=== PATIENT | male | born 1985 | race African-American/Black ===

== ENCOUNTER 2016-09-25 20:06 | Emergency (ER) | payer OTHER, MEDICAID ==
[~2016-09-25] VITALS: Ht 185.4 cm; Wt 140.5 kg
[~2016-09-25 20:06] MED LIST: DOCU50CA4; HAL5I; [UNRECOGNIZED DRUG - REMARK]
[2016-09-25 20:21] VITALS: Ht 185.4 cm; Wt 140.5 kg
[2016-09-25 22:59] LABS: ADD UMIC YES; URINE BILIRUBIN (Dip) NEGATIVE (NEGATIVE); URINE BLOOD (Dip) 2+ (NEGATIVE); URINE COLOR LT. YELLOW (YELLOW); URINE GLUCOSE (Dip) >=1000 % (NEGATIVE); URINE KETONES (Dip) 15 (NEGATIVE); URINE LEUKOCYTE ESTERASE (Dip) NEGATIVE (NEGATIVE); URINE NITRITE (Dip) NEGATIVE (NEGATIVE); URINE TOTAL PROTEIN (Dip) 2+ (NEGATIVE); URINE UROBILINOGEN (Dip) 0.2 E.U./dL (0.1-1.0)
[2016-09-25 23:01] LABS: BASOPHILS % 0.5 % (0.0-2.0); EOSINOPHILS % 0.9 % (0.0-7.0); HEMATOCRIT 42.6 % (42.0-52.0); HEMOGLOBIN 14.2 g/dl (14.0-18.0); LYMPHOCYTES % 27.3 % (15.0-51.0); MEAN CORPUSCULAR HEMOGLOBIN 26.7 pg (29.0-33.0); MEAN CORPUSCULAR HGB CONC 33.3 g/dl (32.0-37.0); MEAN CORPUSCULAR VOLUME 80.1 fl (82.0-101.0); MEAN PLATELET VOLUME 9.4 fl (7.4-10.4); MONOCYTE # 0.4 10^3/ul (0.3-0.9); MONOCYTES % 11.8 % (0.0-11.0); NEUTROPHIL # 2.3 10^3/ul (1.6-7.5); NEUTROPHILS % 59.5 % (39.0-77.0); PLATELET COUNT 223 10^3/UL (140-440); RED BLOOD COUNT 5.32 10^6/ul (4.70-6.10); RED CELL DISTRIBUTION WIDTH 13.6 % (11.5-14.5); UNCORRECTED WBC 3.8 10^3/ul (4.8-10.8); WHITE BLOOD COUNT 3.8 10^3/ul (4.8-10.8)
[2016-09-25 23:03] LABS: CONDITION 1; LH ANALYZER COMMENTS 1
[2016-09-25 23:11] LABS: SQUAMOUS EPITHELIAL CELL,UR RARE
[2016-09-25 23:42] LABS: ALBUMIN 4.4 g/dl (3.3-4.9)
[2016-09-25 23:43] LABS: POTASSIUM 4.3 mmol/L (3.5-5.1)
[2016-09-25 23:45] LABS: ALBUMIN/GLOBULIN RATIO 1.1; BILIRUBIN,INDIRECT 0.2 mg/dl (0-1.1); BILIRUBIN,TOTAL 0.2 mg/dl (0.2-1.3); CREATININE 0.84 mg/dl (0.61-1.24); TOTAL PROTEIN 8.4 g/dl (6.1-8.1)
[2016-09-25 23:46] LABS: CALCIUM 9.6 mg/dl (8.4-10.2)
[2016-09-26] MEDS ORDERED: INSULIN REGULAR, HUMAN 100 UNIT/1 ML 3ML VIAL SC ONE (00:30)
[2016-09-26] MEDS ORDERED: METF500T4 PO (00:37)
--- NOTE | 2016-09-26 01:03 | ERD ---
ER Documentation Chief Complaint Date/Time DATE: 09/26/16 TIME: 00:42 Chief Complaint "DEHYDRATION" AND FREQUENT URINATION X 3 WKS; STATES GETS MONTHLY HALDOL IM HPI 31-year-old male complaining of polydipsia and polyuria 3 weeks. Patient stated that he feels dehydrated all the time. He has history of high blood pressure, is taking hydrochlorothiazide daily. Patient stated that he was seen by his PCP 1 month ago, and had blood tests done at that time. But he did not hear the results. His PCP also put him on a new blood pressure medication 1 month ago, he did not like how he feels so he stopped taking it. He does not remember the name of the new medication. Positive family history of diabetes from his mother. Denies fever or chills. Denies headache. Denies chest pain. Denies abdominal pain, nausea, or vomiting. Denies history of diabetes. ROS All systems reviewed and are negative except as per history of present illness. Medications Home Meds Active Scripts Metformin* (Glucophage*) 500 Mg Tab, 500 MG PO BID, #60 TAB Prov:FANY PELAYO BUILDING REPAIR MAINTENANCE SUPERVISOR 09/26/16 Reported Medications Docusate Sodium (Stool Softener) 50 Mg Capsule 09/24/11 Haloperidol* (Haldol* Lactate) 5 Mg/Ml Soln 09/24/11 [Unknown Psych Meds] No Conflict Check 03/15/10 Allergies Allergies: Coded Allergies: No Known Drug Allergy (Verified Allergy, Mild, 09/24/11) PMhx/Soc Medical and Surgical Hx: pt denies Surgical Hx History of Surgery: No Anesthesia Reaction: No Hx Neurological Disorder: No Hx Respiratory Disorders: No Hx Cardiac Disorders: Yes (HTN) Hx Psychiatric Problems: Yes (schizoPHRENIA; TAKING HALDOL) Hx Miscellaneous Medical Probl: No Hx Alcohol Use: Yes (OCCASIONAL ) Hx Substance Use: No Hx Tobacco Use: No Smoking Status: Never smoker FmHx Family History: diabetes Physical Exam Vitals Vital Signs Date Time Temp Pulse Resp B/P Pulse Ox O2 Delivery O2 Flow Rate FiO2 09/25/16 20:21 97.4 104 18 165/94 98 Physical Exam General impression: Well-developed, well-nourished, morbidly obese 31-year-old male, alert, oriented, in no acute distress Head: Normocephalic, atraumatic. Respiration: Normal respiratory effort. Lungs clear to auscultate bilaterally. No wheezes, rales or rhonchi. Cardiovascular: Regular rate and rhythm. No murmurs or extra heart sounds. Abdomen: Abdomen normal to inspection. Nontender. No masses or organomegaly. Bowel sounds normal. Neuro: Mental status normal, speech normal. Skin: Normal turgor. No rash or lesions. Psych: Normal mood and affect. Result Diagram: 09/25/16224909/25/162249 Results 24 hrs Laboratory Tests Test 09/25/16 22:50 09/26/16 01:12 09/26/16 01:38 Alanine Aminotransferase (ALT/SGPT) 110IU/L Albumin 4.4g/dl Albumin/Globulin Ratio 1.10 Alkaline Phosphatase 157IU/L Anion Gap 21 Aspartate Amino Transf (AST/SGOT) 61IU/L Basophils # 0.010^3/ul Basophils % 0.5% Blood Morphology Comment Blood Urea Nitrogen 13mg/dl Calcium Level 9.6mg/dl Carbon Dioxide Level 24mmol/L Chloride Level 86mmol/L Creatinine 0.84mg/dl Direct Bilirubin 0.00mg/dl Eosinophils # 0.010^3/ul Eosinophils % 0.9% Globulin 4.00g/dl Glucose Level 733mg/dl Hematocrit 42.6% Hemoglobin 14.2g/dl Indirect Bilirubin 0.2mg/dl Lymphocytes # 1.010^3/ul Lymphocytes % 27.3% Mean Corpuscular Hemoglobin 26.7pg Mean Corpuscular Hemoglobin Concent 33.3g/dl Mean Corpuscular Volume 80.1fl Mean Platelet Volume 9.4fl Monocytes # 0.410^3/ul Monocytes % 11.8% Neutrophils # 2.310^3/ul Neutrophils % 59.5% Nucleated Red Blood Cells # 0.010^3/ul Nucleated Red Blood Cells % 0.0/100WBC Platelet Count 38532^3/UL Potassium Level 4.3mmol/L Red Blood Count 5.3210^6/ul Red Cell Distribution Width 13.6% Sodium Level 127mmol/L Total Bilirubin 0.2mg/dl Total Protein 8.4g/dl Urine Bilirubin NEGATIVE Urine Clarity CLEAR Urine Color LT. YELLOW Urine Glucose >=1000% Urine Hemoglobin 2+ Urine Ketones 15 Urine Leukocyte Esterase NEGATIVE Urine Microscopic RBC 2-5/HPF Urine Microscopic WBC 0-2/HPF Urine Nitrite NEGATIVE Urine Specific [place] 1.010 Urine Squamous Epithelial Cells RARE Urine Total Protein 2+ Urine Urobilinogen 0.2 E.U./dL Urine pH 6.0 White Blood Count 3.810^3/ul Bedside Glucose 523mg/dL 482mg/dL Current Medications Medications (Trade) Dose Ordered Sig/Rylan Route PRN Reason Start Time Stop Time Status Last Admin Dose Admin Insulin Human Regular (Humulin R) 10 unit ONCE ONCE SC 09/26/16 00:30 09/26/16 00:31 DC 09/26/16 01:43 Procedures/MDM Well-appearing, morbidly obese 31-year-old male presented to ED with polydipsia and polyuria 3 weeks. Large amount of the the glucose is noted in his urine. He is blood glucose level is 733. Patient's symptoms are result from type II diabetes mellitus. No sign of DKA or hyper osmolar hyper glycemic state. Insulin 10 units subcu given to the patient in the ED. After insulin, patient's blood glucose decreased to 482 by Accu-Chek. Patient will be discharged with prescription of metformin 500 mg twice daily. Patient is provided education on type 2 diabetes. He is advised to follow-up with his PCP for further management. Patient appears well, stable for discharge and outpatient management. Medical decision making shared with patient and family. Education provided to patient and family. Patient and family expressed understanding of the plan. Medications on discharge: Metformin. Follow-up: Primary care provider in 2-3 days or return to ED if worse. The case was reviewed and discussed with Dr. Knott, who agrees with the plan of care including labs, treatment, and advanced imaging as appropriate. Departure Diagnosis: Primary Impression: DMII (diabetes mellitus, type 2) Diabetes mellitus complication status: without complication Diabetes mellitus fdc insulin use: without exterminator termite use Qualified Code: E11.9 - Type 2 diabetes mellitus without complication, without long-term current use of insulin Condition: Stable Patient Instructions: What Is Type 2 Diabetes?, Diabetes: Understanding Carbohydrates, Diabetes: Understanding Carbohydrates, Fats, and Protein, DIABETES, General Info Additional Instructions: Call your primary care doctor TOMORROW for an appointment during the next 2-3 days.See the doctor sooner or return here if your condition worsens before your appointment time. FANY PELAYO NP 18, 2017 00:52
[2016-09-26 02:37] VITALS: BP 140/97; PULSE 60; RESP 16; TEMP 98.9
[2016-09-27] MEDS ORDERED: HALO5AMP3 IJ (15:00)
[2016-09-27] MEDS ORDERED: HYD25 PO (15:05)
[2016-09-27] MEDS ORDERED: AMLO5TAB4 PO (15:05)
[2016-09-27] MEDS ORDERED: LOSA50TA6 PO (15:05)
[2016-09-27] MEDS ORDERED: SITA100T8 PO (15:11)
[2016-09-27] MEDS ORDERED: INSU300I SQ (15:17)
== END 2016-09-26 02:38 | disposition home or self-care (01) ==
LOC: FTE 20:06
DX: E11.9 Type 2 diabetes mellitus without complications (principal); I10 Essential (primary) hypertension; Z79.84 Long term (current) use of oral hypoglycemic drugs
CPT/HCPCS: 80053; 81001; 82962; 85025; 96372; 99284; J1815; 81003

== ENCOUNTER 2016-09-27 14:24 | Emergency (ER) | payer OTHER, MEDICAID ==
[~2016-09-27] VITALS: Wt 139.0 kg
[~2016-09-27 14:24] MED LIST changes: +METF500T4 PO
[2016-09-27] MEDS ORDERED: SOD CHLORIDE 0.9% 1,000 ML IV STA (14:56)
[2016-09-27] MEDS ORDERED: INSULIN REGULAR, HUMAN 100 UNIT/1 ML 3ML VIAL SC ONE (15:00)
[2016-09-27] MEDS ORDERED: HALO5AMP3 IJ (15:00)
[2016-09-27] MEDS ORDERED: AMLO5TAB4 PO (15:05)
[2016-09-27] MEDS ORDERED: HYD25 PO (15:05)
[2016-09-27] MEDS ORDERED: LOSA50TA6 PO (15:05)
[2016-09-27] MEDS ORDERED: SITA100T8 PO (15:11)
[2016-09-27] MEDS ORDERED: INSU300I SQ (15:17)
[2016-09-27 15:18] LABS: BASOPHILS % 0.3 % (0.0-2.0); EOSINOPHILS # 0.1 10^3/ul (0.0-0.5); EOSINOPHILS % 1.3 % (0.0-7.0); HEMATOCRIT 43.4 % (42.0-52.0); HEMOGLOBIN 14.4 g/dl (14.0-18.0); LYMPHOCYTES % 31.2 % (15.0-51.0); MEAN CORPUSCULAR HEMOGLOBIN 26.5 pg (29.0-33.0); MEAN CORPUSCULAR HGB CONC 33.1 g/dl (32.0-37.0); MEAN CORPUSCULAR VOLUME 80.1 fl (82.0-101.0); MEAN PLATELET VOLUME 9.6 fl (7.4-10.4); MONOCYTE # 0.5 10^3/ul (0.3-0.9); MONOCYTES % 8.4 % (0.0-11.0); NEUTROPHIL # 3.7 10^3/ul (1.6-7.5); NEUTROPHILS % 58.8 % (39.0-77.0); PLATELET COUNT 235 10^3/UL (140-440); RED BLOOD COUNT 5.43 10^6/ul (4.70-6.10); RED CELL DISTRIBUTION WIDTH 13.4 % (11.5-14.5); UNCORRECTED WBC 6.3 10^3/ul (4.8-10.8); WHITE BLOOD COUNT 6.3 10^3/ul (4.8-10.8)
--- NOTE | 2016-09-27 15:26 | RADRPT ---
PROCEDURE: XR Chest. CLINICAL INDICATION: chest pain TECHNIQUE: Single frontal view of the chest was obtained COMPARISON: None FINDINGS: The heart and mediastinum are within normal limits. The lungs are clear. There is no pleural effusion or pneumothorax. RPTAT: AA IMPRESSION: No acute disease. .Luis Manuel MD, Date Time Electronically viewed and signed by .Luis Manuel MD, on 09/27/2016 15:25 .S/
[2016-09-27 15:27] LABS: CONDITION 1; LH ANALYZER COMMENTS 1; SUSPECT 1
[2016-09-27 15:30] LABS: ALBUMIN 4.4 g/dl (3.3-4.9); CHLORIDE 90 mmol/L (97-110); POTASSIUM 3.8 mmol/L (3.5-5.1); SODIUM 130 mmol/L (135-144)
[2016-09-27 15:32] LABS: ANION GAP 23 (8-16); BILIRUBIN,INDIRECT 0.5 mg/dl (0-1.1); BILIRUBIN,TOTAL 0.5 mg/dl (0.2-1.3); CARBON DIOXIDE 21 mmol/L (21-31); CREATININE 1.13 mg/dl (0.61-1.24)
[2016-09-27 15:33] LABS: ALANINE AMINOTRANSFERASE 104 IU/L (13-69); ALKALINE PHOSPHATASE 114 IU/L (42-121); ASPARTATE AMINO TRANSFERASE 63 IU/L (15-46); BLOOD UREA NITROGEN 15 mg/dl (7-20); CALCIUM 9.7 mg/dl (8.4-10.2); TOTAL PROTEIN 8.8 g/dl (6.1-8.1)
[2016-09-27 15:35] LABS: GLUCOSE 428 mg/dl (70-220)
[2016-09-27 15:45] LABS: TROPONIN-I < 0.012 ng/ml (0.00-0.12)
[2016-09-27 16:30] LABS: ADD UMIC YES; URINE BILIRUBIN (Dip) NEGATIVE (NEGATIVE); URINE BLOOD (Dip) 1+ (NEGATIVE); URINE COLOR LT. YELLOW (YELLOW); URINE GLUCOSE (Dip) >=1000 % (NEGATIVE); URINE KETONES (Dip) 3+ (NEGATIVE); URINE LEUKOCYTE ESTERASE (Dip) NEGATIVE (NEGATIVE); URINE NITRITE (Dip) NEGATIVE (NEGATIVE); URINE TOTAL PROTEIN (Dip) TRACE (NEGATIVE); URINE UROBILINOGEN (Dip) 0.2 E.U./dL (0.1-1.0)
--- NOTE | 2016-09-27 16:43 | ERD ---
ER Documentation Chief Complaint Date/Time DATE: 09/27/16 TIME: 16:42 Chief Complaint HERE FOR IV FLUIDS FOR HIGH SUGARS NEW DX OF DM. NAUSEA AND WEAKNESS HPI 31-year-old man with history of psychiatric illness and recent diabetes mellitus was found to be hyperglycemic at the office today and after his physician administered 12 units of insulin subcutaneously she referred him here to rule out DKA versus hyperosmolar state. He has had no dizziness or loss of consciousness, no fevers or chills, no chest pain or shortness of breath. Patient denies dysuria. He was given multiple samples of insulin syringe to inject subcutaneously, his PMD also gave him instructions on how to use the insulin and recommended he use 1 dose tonight. He has had no vomiting or diarrhea, no blood per rectum or melena. Patient denies suicidal homicidal ideation. ROS All systems reviewed and are negative except as per history of present illness. Medications Home Meds Active Scripts Metformin* (Glucophage*) 500 Mg Tab, 500 MG PO BID, #60 TAB Prov:FANY PELAYO TECHNICAL PRODUCT MANAGER 09/26/16 Reported Medications Insulin Glargine,Hum.rec.anlog (Zaid Rico) 300 Unit/1 Ml Insuln.pen, 40 UNIT SQ QHS PT HASNT STARTED YET 09-27-16 09/27/16 Sitagliptin* (Januvia*) 100 Mg Tablet, 100 MG PO DAILY, #30 TAB PT HASNT STARTED YET 09-27-16 09/27/16 Amlodipine Besylate* (Norvasc*) 5 Mg Tablet, 5 MG PO DAILY, TAB 09/27/16 Losartan Potassium* (Losartan Potassium*) 50 Mg Tablet, 50 MG PO DAILY, TAB 09/27/16 Hydrochlorothiazide* (Hydrochlorothiazide*) 25 Mg Tab, 25 MG PO DAILY, #30 TAB 09/27/16 Haloperidol Lactate (Haldol) 5 Mg/1 Ml Ampul, 62.5 MG IJ ONCE A MONTH 09/27/16 Discontinued Reported Medications Docusate Sodium (Stool Softener) 50 Mg Capsule 09/24/11 Haloperidol* (Haldol* Lactate) 5 Mg/Ml Soln 09/24/11 [Unknown Psych Meds] No Conflict Check 03/15/10 Allergies Allergies: Coded Allergies: No Known Drug Allergy (Verified Allergy, Mild, 09/27/16) PMhx/Soc Obesity, psychiatric illness, diabetes mellitus History of Surgery: No Anesthesia Reaction: No Hx Neurological Disorder: No Hx Respiratory Disorders: No Hx Cardiac Disorders: Yes (HTN) Hx Psychiatric Problems: Yes (schizoPHRENIA; TAKING HALDOL) Hx Miscellaneous Medical Probl: No (DM) Hx Alcohol Use: Yes (OCCASIONAL ) Hx Substance Use: No Hx Tobacco Use: No Smoking Status: Never smoker FmHx Family History: diabetes Physical Exam Vitals Vital Signs Date Time Temp Pulse Resp B/P Pulse Ox O2 Delivery O2 Flow Rate FiO2 09/27/16 17:00 98.7 87 20 126/84 100 Room Air 09/27/16 16:18 98.8 87 20 123/87 100 Room Air 09/27/16 14:29 98.8 116 20 132/82 98 Physical Exam GENERAL: Well-developed, well-nourished, well-hydrated, in no apparent distress , looks nontoxic in appearance HEENT: Moist mucous membranes, pink conjunctiva, no cervical spine tenderness or step-off deformities, no goiter, no jaundice or icterus, extraocular movements intact without pain. No submandibular induration, and no pharyngeal erythema NEURO: Alert and oriented 3, cranial nerves II through XII intact bilaterally, pupils equal round reactive to light, no focal deficits or facial asymmetry, sensation intact distally Strength 5/5 in upper and lower extremities bilaterally CARDIAC: Regular rate and rhythm, no murmurs rubs or gallops LUNGS: Clear bilaterally no wheezing crackles or stridor ABDOMEN: Soft nontender, no guarding, no rigidity, no rebound, no psoas sign no obturator sign. Normoactive bowel sounds SKIN: Warm and dry to touch, no abrasions, contusions, or hematomas, no lacerations, no ecchymosis, no target lesions, and without ulcers EXTREMITIES: No clubbing cyanosis or edema, calves are bilaterally symmetrical, no Homans sign, no popliteal cord sign. Distal pulses equal and bilateral PSYCH: Normal affect without agitation or irritability Result Diagram: 09/27/16 1505 09/27/16 1505 Results 24 hrs Laboratory Tests Test 09/27/16 14:34 09/27/16 14:56 09/27/16 15:05 09/27/16 15:13 Bedside Glucose 394mg/dL 417mg/dL Nabil Test N/A Arterial Blood Date Drawn 09/27/2016 4:43:41 PM Arterial Blood Gas Puncture Site VENOUS LINE Blood Gas Actual Respiration Rate 20 Blood Gas Modality ROOM AIR Blood Gas Notified Time 09/27/2016 4:57:36 PM Blood Gas Notified Whom MARCELINO RT Blood Gas Specimen Source Blood venous Blood Gas Temperature 37.0C Carboxyhemoglobin 0.5% FiO2 21.0% Venous Blood Base Excess -5.4mmol/L Venous Blood HCO3 19.6mmol/L Venous Blood Methemoglobin 0.2% Venous Blood Oxygen Saturation 72.8mmHG Venous Blood Oxyhemoglobin 72.3% Venous Blood Total Hemoglobin 14.4g/dl Venous Blood pCO2 (Temp Corrected) 36.7mmHG Venous Blood pH 7.345 Venous Blood pO2 (Temp Corrected) 40.7mmHG Alanine Aminotransferase (ALT/SGPT) 104IU/L Albumin 4.4g/dl Albumin/Globulin Ratio 1.00 Alkaline Phosphatase 114IU/L Anion Gap 23 Aspartate Amino Transf (AST/SGOT) 63IU/L Basophils # 0.010^3/ul Basophils % 0.3% Blood Morphology Comment Blood Urea Nitrogen 15mg/dl Calcium Level 9.7mg/dl Carbon Dioxide Level 21mmol/L Chloride Level 90mmol/L Creatinine 1.13mg/dl Differential Comment AUTO w/SCAN Direct Bilirubin 0.00mg/dl Eosinophils # 0.110^3/ul Eosinophils % 1.3% Globulin 4.40g/dl Glucose Level 428mg/dl Hematocrit 43.4% Hemoglobin 14.4g/dl Indirect Bilirubin 0.5mg/dl Lipase 164U/L Lymphocytes # 2.010^3/ul Lymphocytes % 31.2% Mean Corpuscular Hemoglobin 26.5pg Mean Corpuscular Hemoglobin Concent 33.1g/dl Mean Corpuscular Volume 80.1fl Mean Platelet Volume 9.6fl Monocytes # 0.510^3/ul Monocytes % 8.4% Neutrophils # 3.710^3/ul Neutrophils % 58.8% Nucleated Red Blood Cells # 0.010^3/ul Nucleated Red Blood Cells % 0.0/100WBC Platelet Count 65053^3/UL Potassium Level 3.8mmol/L Red Blood Count 5.4310^6/ul Red Cell Distribution Width 13.4% Sodium Level 130mmol/L Total Bilirubin 0.5mg/dl Total Protein 8.8g/dl Troponin I < 0.012ng/ml White Blood Count 6.310^3/ul Test 09/27/16 16:20 09/27/16 16:36 Urine Bilirubin NEGATIVE Urine Clarity SLIGHTLY CLOUDY Urine Coarse Granular Casts MODERATE Urine Color LT. YELLOW Urine Glucose >=1000% Urine Hemoglobin 1+ Urine Ketones 3+ Urine Leukocyte Esterase NEGATIVE Urine Microscopic RBC 2-5/HPF Urine Microscopic WBC 0-2/HPF Urine Nitrite NEGATIVE Urine Specific [place] 1.010 Urine Squamous Epithelial Cells FEW Urine Total Protein TRACE Urine Urobilinogen 0.2 E.U./dL Urine pH 5.5 Bedside Glucose 338mg/dL Current Medications Medications (Trade) Dose Ordered Sig/Rylan Route PRN Reason Start Time Stop Time Status Last Admin Dose Admin Sodium Chloride (NS) 1,000 ml @ 1,000 mls/hr Q1H STAT IV 09/27/16 14:56 09/27/16 15:55 DC 09/27/16 15:20 Insulin Human Regular (Humulin R) 12 unit ONCE ONCE SC 09/27/16 15:00 09/27/16 15:01 DC Procedures/MDM IV line was established patient was placed on court recording monitor rhythm strip revealed a sinus rhythm at about 90 bpm with upright P and T waves. EKG performed, read by me: 89 bpm, normal sinus rhythm, normal axis, diffuse T- wave inversions in all leads, no concerning ST elevations or depressions noted. Narrow QRS complex, with good R-wave progression in precordial leads. Unremarkable CBC was unremarkable, electrolytes revealed hyperglycemia initially of 428, liver function tests were normal, troponin was negative. Urinalysis was negative for infection. VBG was performed and interpreted by me revealing a pH of 7.35, PCO2 37, PO2 41. Normal. Blood sugar fell appropriately after IV fluids and I recommended he uses subcutaneous insulin this evening as recommended by his PMD I obtained a consultation with the patient's primary care physician, who referred him here. We went over and discussed the patient's presentation, symptomatology, and labs. He does have a prescription for his subcutaneous insulin and was given information and instructions on how to use it. His next dose will be later this evening. He can be managed as an outpatient and we found no indication for admission. Differential diagnoses considered, included but not limited to acute coronary syndrome, pulmonary embolism, aortic dissection, abdominal aortic aneurysm, sepsis, stroke, meningitis, encephalitis, pneumonia, appendicitis, cholecystitis , bowel obstruction, pyelonephritis, nephrolithiasis, cystitis, as well as metabolic, hematologic, and electrolyte abnormalities. As well as abscess, cellulitis, fractures, and dislocations. Patient feels much better at this time, and vital signs are normal, symptoms have improved. I did give strict instructions to return to the ED if symptoms continue or worsen, patient will otherwise follow-up with primary care physician. Patient understood instructions and agreed to plan. Departure Diagnosis: Primary Impression: Hyperglycemia Condition: Good Patient Instructions: Hyperglycemia (High Blood Sugar) Referrals: MALIKA BERNSTEIN DO (PCP) YOLANDE PARSON MD Sep 27, 2016 16:43
[2016-09-27 16:56] LABS: SQUAMOUS EPITHELIAL CELL,UR FEW
[2016-09-27 16:57] LABS: MODE ROOM AIR; MetHgb Venous 0.2 %; Sample Type Blood venous; Venous COHb 0.5 %; Venous Fraction OxyHgb 72.3 %; Venous Total Hemglobin 14.4 g/dl
[2016-09-27 17:00] VITALS: BP 126/84; PULSE 87; RESP 20; TEMP 98.7
== END 2016-09-27 17:26 | disposition home or self-care (01) ==
LOC: E/R 14:24
DX: E11.65 Type 2 diabetes mellitus with hyperglycemia (principal); I10 Essential (primary) hypertension; E66.9 Obesity, unspecified; Z79.4 Long term (current) use of insulin; Z79.84 Long term (current) use of oral hypoglycemic drugs
CPT/HCPCS: 36415; 71010; 80053; 81001; 82803; 82962; 83690; 84484; 85025; 93005; J1815; J7030; Z7502; 81003

== ENCOUNTER 2016-10-19 15:06 | Emergency (ER) | payer MEDICAID, OTHER ==
[~2016-10-19] VITALS: Wt 120.0 kg
[~2016-10-19 15:06] MED LIST changes: +AMLO5TAB4 PO; -DOCU50CA4; -HAL5I; +HALO5AMP3 IJ; +HYD25 PO; +INSU300I SQ; +LOSA50TA6 PO; +SITA100T8 PO; -[UNRECOGNIZED DRUG - REMARK]
[2016-10-19] MEDS ORDERED: PSEU120T51 PO (15:36)
[2016-10-19] MEDS ORDERED: CARB15DR48 LEFT EAR (15:37)
--- NOTE | 2016-10-19 15:42 | ERD ---
ER Documentation Chief Complaint Date/Time DATE: 10/19/16 TIME: 15:37 Chief Complaint EAR PAIN X 1 WEEK HPI She has 31-year-old male who presents to the emergency Department with left ear pain 1 week. Patient states that he recently had a URI. Patient states that he had a cough and rhinorrhea. Patient states 2 days ago and started to feel "increased pressure" to his left ear. Patient states as if it feels that there is blockage. Patient states that he feels difficulty popping his ear. Patient reports using Q-tips daily. He denies any fever, chills, nausea, vomiting, cough , abdominal pain, loss of consciousness. ROS All systems reviewed and are negative except as per history of present illness. Medications Home Meds Active Scripts Carbamide Peroxide* (Debrox*) 6.5% - 15 Ml Drops, 5 DROP LEFT EAR BID, #1 BOTTLE Prov:JOSEPHINE OLMSTEAD PA-C 10/19/16 Pseudoephedrine Hcl (Sudafed 12 Hour) 120 Mg Tablet.sa, 120 MG PO BID, #14 Prov:JOSEPHINE OLMSTEAD PA-C 10/19/16 Metformin* (Glucophage*) 500 Mg Tab, 500 MG PO BID, #60 TAB Prov:FANY PELAYO. CHUTE LOADER 09/26/16 Reported Medications Insulin Glargine,Hum.rec.anlog (Zaid Rico) 300 Unit/1 Ml Insuln.pen, 40 UNIT SQ QHS PT HASNT STARTED YET 09-27-16 09/27/16 Sitagliptin* (Januvia*) 100 Mg Tablet, 100 MG PO DAILY, #30 TAB PT HASNT STARTED YET 09-27-16 09/27/16 Amlodipine Besylate* (Norvasc*) 5 Mg Tablet, 5 MG PO DAILY, TAB 09/27/16 Losartan Potassium* (Losartan Potassium*) 50 Mg Tablet, 50 MG PO DAILY, TAB 09/27/16 Hydrochlorothiazide* (Hydrochlorothiazide*) 25 Mg Tab, 25 MG PO DAILY, #30 TAB 09/27/16 Haloperidol Lactate (Haldol) 5 Mg/1 Ml Ampul, 62.5 MG IJ ONCE A MONTH 09/27/16 Allergies Allergies: Coded Allergies: No Known Drug Allergy (Verified Allergy, Mild, 09/27/16) PMhx/Soc History of Surgery: No Anesthesia Reaction: No Hx Neurological Disorder: No Hx Respiratory Disorders: No Hx Cardiac Disorders: Yes (HTN) Hx Psychiatric Problems: Yes (schizoPHRENIA; TAKING HALDOL) Hx Miscellaneous Medical Probl: No (DM) Hx Alcohol Use: Yes (OCCASIONAL ) Hx Substance Use: No Hx Tobacco Use: No Physical Exam Vitals Vital Signs Date Time Temp Pulse Resp B/P Pulse Ox O2 Delivery O2 Flow Rate FiO2 10/19/16 15:09 99.0 89 18 162/81 99 Physical Exam GENERAL: Well-developed, well-nourished male. Appears in no acute distress. . HEAD: Normocephalic, atraumatic. No deformities or ecchymosis. EYE: Pupils equal, round, and reactive to light. EOMs intact. No conjunctival erythema. No scleral icterus. No eye discharge. ENT: External ear without any masses or tenderness. Left-side auditory canal noted with minimal cerumen. Canal is not fully impacted. Left TM is visualized, nonerythematous nonbulging. Right auditory canal is clear, right TM is visualized, nonerythematous nonbulging. Nasal mucosa pink with no discharge. Oropharynx is pink without any tonsillar erythema or exudates. No uvula deviation. No kissing tonsils. NECK: Supple. No lymphadenopathy or thyromegaly. Arrange of motion of the neck. LUNG: Clear to auscultation bilaterally. No rhonchi, wheezing, rales or coarse breath sounds. HEART: Regular rate and rhythm. No murmurs, rubs or gallops. ABDOMEN: Soft, nontender, and nondistended. Positive bowel sounds in all four quadrants. No rebound tenderness, no guarding. (-) McBurney's point tenderness. No CVA tenderness. BACK: No midline tenderness. EXTREMITES: Equal pulses bilaterally. No peripheral clubbing, cyanosis or edema. No unilateral leg swelling. NEUROLOGIC: Alert and oriented to person, place and time. Moving all four extremities. 5/5 strength in all extremities. Normal speech. Steady gait. SKIN: Normal color. Warm and dry. No rashes or lesions. Procedures/MDM MEDICAL DECISION MAKING: This is a 33-year-old male who presents with left ear pain after recent URI. Vital signs were reviewed. Patient was afebrile. Patient was not hypoxic. Ear exam revealed minimal cerumen, nonbulging nonerythematous tympanic membrane. Given these findings, the patients presentation is most consistent with eustachian tube dysfunction.. I have a much lower clinical suspicion for otitis externa, acute otitis media, tympanic membrane perforation, mastoiditis, otic barotrauma, TMJ dysfunction, pharyngitis, pneumonia. At this time, I do not feel that ear irrigation is appropriate given that patient has minimal cerumen impaction. PRESCRIPTIONS: Debrox ear drops, Sudafed DISCHARGE: At this time, patient is stable for discharge and outpatient management. I have instructed the patient to follow-up with his/her primary care physician in 1-2 days. I have discussed with the patient the possibility of needing to see a specialist for further workup and diagnostic studies if the pain persists. I have instructed the patient to promptly return to the ER at any time for any new or worsening symptoms including increased pain, fever, swelling, discharge or hearing loss. The patient and/or family expressed understanding of and agreement with this plan. All questions were answered. Home care instructions were provided. Departure Diagnosis: Primary Impression: Eustachian tube dysfunction Laterality: left Qualified Code: H69.82 - Eustachian tube dysfunction, left Condition: Stable Patient Instructions: Common Middle Ear Problems Additional Instructions: Avoid Q tips. Call your primary care doctor TOMORROW for an appointment during the next 1-2 days.See the doctor sooner or return here if your condition worsens before your appointment time. JOSEPHINE OLMSTEAD PA-C Oct 19, 2016 15:42
== END 2016-10-19 15:40 | disposition home or self-care (01) ==
LOC: E/R 15:06
DX: H69.82 Other specified disorders of Eustachian tube, left ear (principal); I10 Essential (primary) hypertension; E11.9 Type 2 diabetes mellitus without complications; Z79.4 Long term (current) use of insulin; Z79.84 Long term (current) use of oral hypoglycemic drugs
CPT/HCPCS: 99283

== ENCOUNTER 2018-09-11 16:39 | Emergency (ER) | payer OTHER, BC ==
[~2018-09-11] VITALS: Ht 182.9 cm; Wt 142.7 kg
[~2018-09-11 16:39] MED LIST changes: +CARB15DR50 LEFT EAR; -HYD25 PO; +HYDR25TA6 PO; -LOSA50TA6 PO; +LOSA50TA7 PO; +METF-849 PO; -METF500T4 PO; +PSEU120T12 PO; +SITA100T11 PO; -SITA100T8 PO
[2018-09-11 16:52] VITALS: Ht 182.9 cm; Wt 142.7 kg
[2018-09-11] MEDS ORDERED: SOD CHLORIDE 0.9% 1,000 ML IV ONE (19:30)
[2018-09-11] MEDS ORDERED: HYDR25TA6 PO (19:59)
[2018-09-11] MEDS ORDERED: LOSA50TA7 PO (20:00)
[2018-09-11] MEDS ORDERED: BENZ1TAB7 PO (20:00)
[2018-09-11] MEDS ORDERED: HALO100A3 IM (20:03)
[2018-09-11] MEDS ORDERED: CANA300T PO (20:16)
[2018-09-11] MEDS ORDERED: LIRA0.6P2 SQ (20:16)
--- NOTE | 2018-09-11 20:19 | ERD ---
ER Documentation Chief Complaint Chief Complaint Sent by PCP for >500 BG, polyuria, body aches X 1 day HPI 33-year-old male with a known history of diabetes presents the emergency department for evaluation of high blood sugar. Patient states over the last few days, over the holidays, his blood sugars have been high. He has had polyuria and polydipsia with no fevers, chills or discomfort. ROS All systems reviewed and are negative except as per history of present illness. Medications Home Meds Active Scripts Liraglutide (Victoza 3-Kirby) 0.6 Mg/0.1 Ml Pen.injctr, 1.2 MG SQ DAILY, #20 SYR Prov:CATE ONRRIS 09/11/18 Canagliflozin (Invokana) 300 Mg Tablet, 300 MG PO DAILY, #20 TAB Prov:CATE NORRIS 09/11/18 Reported Medications Haloperidol Decanoate (Haldol Decanoate 100) 100 Mg/1 Ml Ampul, 62.5 MG IM ONCE A MONTH 09/11/18 Benztropine Mesylate* (Benztropine Mesylate*) 1 Mg Tablet, 1 MG PO DAILY PRN for NEEDED, TAB 09/11/18 Losartan Potassium* (Losartan Potassium*) 50 Mg Tablet, 50 MG PO DAILY, TAB 09/11/18 Hydrochlorothiazide* (Hydrochlorothiazide*) 25 Mg Tab, 25 MG PO DAILY, #30 TAB 09/11/18 Discontinued Reported Medications Insulin Glargine,Hum.rec.anlog (Zaid Rico) 300 Unit/1 Ml Insuln.pen, 40 UNIT SQ QHS PT HASNT STARTED YET 09-27-16 09/27/16 Sitagliptin* (Januvia*) 100 Mg Tablet, 100 MG PO DAILY, #30 TAB PT HASNT STARTED YET 09-27-09/27/16 Amlodipine Besylate* (Norvasc*) 5 Mg Tablet, 5 MG PO DAILY, TAB 09/27/16 Losartan Potassium* (Losartan Potassium*) 50 Mg Tablet, 50 MG PO DAILY, TAB 09/27/16 Hydrochlorothiazide* (Hydrochlorothiazide*) 25 Mg Tab, 25 MG PO DAILY, #30 TAB 09/27/16 Haloperidol Lactate (Haldol) 5 Mg/1 Ml Ampul, 62.5 MG IJ ONCE A MONTH 09/27/16 Discontinued Scripts Carbamide Peroxide* (Debrox*) 6.5% - 15 Ml Drops, 5 DROP LEFT EAR BID, #1 BOTTLE Prov:AYSHAJOSEPHINE WILSON 10/19/16 Pseudoephedrine Hcl (Sudafed 12 Hour) 120 Mg Tablet.sa, 120 MG PO BID, #14 Prov:PRETTY OLMSTEADJENNI WILSON 10/19/16 Metformin* (Glucophage*) 500 Mg Tab, 500 MG PO BID, #60 TAB Prov:FANY PELAYO BIOINFORMATICS SPECIALIST 09/26/16 Allergies Allergies: Coded Allergies: No Known Drug Allergy (Verified Allergy, Mild, 09/11/18) PMhx/Soc History of Surgery: No Anesthesia Reaction: No Hx Neurological Disorder: No Hx Respiratory Disorders: No Hx Cardiac Disorders: Yes (HTN) Hx Psychiatric Problems: Yes (schizoPHRENIA; TAKING HALDOL) Hx Miscellaneous Medical Probl: No (DM) Hx Alcohol Use: Yes (OCCASIONAL ) Hx Substance Use: No Hx Tobacco Use: No Smoking Status: Never smoker FmHx History of diabetes in the family Physical Exam Vitals Vital Signs Date Temp Pulse Resp B/P (MAP) Pulse Ox O2 O2 Flow FiO2 Time Delivery Rate 09/11/18 98.2 106 18 143/88 96 16:52 (106) Physical Exam GENERAL: The patient is well developed and appropriate for usual state of health in no apparent distress HEENT: Pupils equal, round, and reactive to light. EOMI. There is no scleral icterus. NECK: C-spine is soft and supple, there is no meningismus. There is no cervical lymphadenopathy. LUNGS: Clear to auscultation bilaterally. There are no rales, wheezes or rhonchi. HEART: Regular rate and rhythm, no murmurs, clicks, rubs or gallops. ABDOMEN: Soft, non-tender, non-distended. There are bowel sounds in all four quadrants. No rebound or guarding. EXTREMITIES: There is no peripheral cyanosis or edema. No focal swelling or erythema. NEURO: The patient moves all four extremities with 5/5 strength. Cranial nerves II - XII are intact. Normal gait. Alert and oriented SKIN: There is no apparent rash or petechiae. HEME/LYMPHATIC: There is no evidence of excessive bruising or lymphedema. PSYCHIATRIC: The patient does not appear anxious or depressed. Result Diagram: 09/11/18192409/11/181924 Results 24 hrs Laboratory Tests Test 09/11/18 16:56 09/11/18 19:25 09/11/18 19:30 Bedside Glucose 518 mg/dL White Blood Count 7.8 10^3/ul Red Blood Count 5.10 10^6/ul Hemoglobin 13.5 g/dl Hematocrit 42.2 % Mean Corpuscular Volume 82.7 fl Mean Corpuscular Hemoglobin 26.5 pg Mean Corpuscular 32.0 g/dl Hemoglobin Concent Red Cell Distribution Width 12.8 % Platelet Count 344 10^3/UL Mean Platelet Volume 11.0 fl Immature Granulocytes % 0.400 % Neutrophils % 51.0 % Lymphocytes % 38.8 % Monocytes % 8.0 % Eosinophils % 1.4 % Basophils % 0.4 % Nucleated Red Blood Cells % 0.0 /100WBC Immature Granulocytes # 0.030 10^3/ul Neutrophils # 4.0 10^3/ul Lymphocytes # 3.0 10^3/ul Monocytes # 0.6 10^3/ul Eosinophils # 0.1 10^3/ul Basophils # 0.0 10^3/ul Nucleated Red Blood Cells # 0.0 10^3/ul Sodium Level 133 mmol/L Potassium Level 4.3 mmol/L Chloride Level 95 mmol/L Carbon Dioxide Level 28 mmol/L Anion Gap 10 Blood Urea Nitrogen 17 mg/dl Creatinine 0.92 mg/dl Est Glomerular Filtrat > 60 mL/min Rate mL/min Glucose Level 427 mg/dl Calcium Level 9.8 mg/dl Phosphorus Level 3.7 mg/dl Magnesium Level 2.0 mg/dl Urine Color STRAW Urine Clarity CLEAR Urine pH 5.0 Urine Specific [place] 1.038 Urine Ketones TRACE mg/dL Urine Nitrite NEGATIVE mg/dL Urine Bilirubin NEGATIVE mg/dL Urine Urobilinogen NEGATIVE mg/dL Urine Leukocyte Esterase NEGATIVE Linda/ul Urine Microscopic RBC 1 /HPF Urine Microscopic WBC 0 /HPF Urine Hemoglobin NEGATIVE mg/dL Urine Glucose 3+ mg/dL Urine Total Protein 2+ mg/dl Current Medications Medications Dose Sig/Rylan Start Time Status Last (Trade) Ordered Route PRN Stop Time Admin Dose Reason Admin Sodium 1,000 ml @ ONCE ONCE 09/11/18 09/11/18 Chloride 1,000 mls/hr IV 19:30 09/11/18 19:39 20:29 Procedures/MDM Patient was taken to a room, seen and evaluated. Comfort measures were initiated. Diagnostic tests were ordered and reviewed. REEVALUATION: 2014: Diagnostic tests were appreciated. Patient was hydrated. Patient remained clinically well-appearing. After discussing the patient's test results with him, he seemed appropriate for outpatient care. MEDICAL DECISION MAKIN-year-old male presents the emergency department with essentially a asymptomatic hyperglycemia. At this time, patient appears to be c linically asymptomatic with no evidence of diabetic ketoacidosis. Patient appears to be clinically well and appropriate for outpatient supportive care. I will be refilling his medications which had previously controlled his diabetes for him. Departure Diagnosis: Primary Impression: Hyperglycemia Condition: Stable Patient Instructions: Hyperglycemia (High Blood Sugar) Additional Instructions: See your doctor for follow-up as discussed. Take a copy of your test results, if appropriate, to this follow-up visit. See your doctor or return here if your symptoms do not improve as expected. At any time, please return to the emergency department for any change or wors ening in her symptoms. CATE NORRIS Sep 11, 2018 20:19
[2018-09-11 20:31] VITALS: BP 138/82; PULSE 82; RESP 20
== END 2018-09-11 20:32 | disposition home or self-care (01) ==
LOC: E/R 16:39
DX: E11.65 Type 2 diabetes mellitus with hyperglycemia (principal); I10 Essential (primary) hypertension
CPT/HCPCS: 36415; 80048; 81001; 82962; 83735; 84100; 85025; 99284; J7030

== ENCOUNTER 2019-03-28 18:39 | Emergency (ER) | payer OTHER, BC ==
[~2019-03-28] VITALS: Ht 182.9 cm; Wt 142.0 kg
[~2019-03-28 18:39] MED LIST changes: -AMLO5TAB4 PO; +BENZ1TAB7 PO; +CANA300T PO; -CARB15DR50 LEFT EAR; +HALO100A3 IM; -HALO5AMP3 IJ; -INSU300I SQ; +LIRA0.6P2 SQ; +LOSA50TA14 PO; -LOSA50TA7 PO; -METF-849 PO; -PSEU120T12 PO; -SITA100T11 PO
[2019-03-28 18:55] VITALS: Ht 182.9 cm; Wt 142.0 kg
[2019-03-28] MEDS ORDERED: SOD CHLORIDE 0.9% 2,000 ML IV STA (19:20)
[2019-03-28] MEDS ORDERED: INSULIN LISPRO 100 UNIT/ML VIAL SC ONE (20:30)
[2019-03-28] MEDS ORDERED: SOD CHLORIDE 0.9% 1,000 ML IV ONE (22:13)
--- NOTE | 2019-03-28 22:24 | ERD ---
ER Documentation Chief Complaint Chief Complaint Pt reports glucose was 339 fasting this morning HPI 33-year-old male presents with a history of diabetes. He takes Glucophage and Lantus. His doctors currently titrating up his Lantus. He is concerned because he had a blood glucose of 339 at home. He is wishing to have it lowered so he could accurately titrate his Lantus. He denies any vomiting, headache, fevers, recent illnesses. 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 ROS All systems reviewed and are negative except as per history of present illness. Medications Home Meds Active Scripts Liraglutide (Victoza 3-Kirby) 0.6 Mg/0.1 Ml Pen.injctr, 1.2 MG SQ DAILY, #20 SYR Prov:CATE NORRIS 09/11/18 Canagliflozin (Invokana) 300 Mg Tablet, 300 MG PO DAILY, #20 TAB Prov:CATE NORRIS 09/11/18 Reported Medications Haloperidol Decanoate (Haldol Decanoate 100) 100 Mg/1 Ml Ampul, 62.5 MG IM ONCE A MONTH 09/11/18 Benztropine Mesylate* (Benztropine Mesylate*) 1 Mg Tablet, 1 MG PO DAILY PRN for NEEDED, TAB 09/11/18 Losartan Potassium* (Losartan Potassium*) 50 Mg Tablet, 50 MG PO DAILY, TAB 09/11/18 Hydrochlorothiazide* (Hydrochlorothiazide*) 25 Mg Tab, 25 MG PO DAILY, #30 TAB 09/11/18 Allergies Allergies: Coded Allergies: No Known Drug Allergy (Verified Allergy, Mild, 09/11/18) PMhx/Soc Medical and Surgical Hx: pt denies Surgical Hx History of Surgery: No Anesthesia Reaction: No Hx Neurological Disorder: No Hx Respiratory Disorders: No Hx Cardiac Disorders: Yes (HTN) Hx Psychiatric Problems: Yes (schizoPHRENIA; TAKING HALDOL) Hx Miscellaneous Medical Probl: No (DM) Hx Alcohol Use: Yes (OCCASIONAL ) Hx Substance Use: No Hx Tobacco Use: No Smoking Status: Never smoker FmHx Family History: diabetes Physical Exam Vitals Vital Signs Date Temp Pulse Resp B/P (MAP) Pulse Ox O2 O2 Flow FiO2 Time Delivery Rate 03/28/19 98.2 94 24 162/79 98 18:55 (106) Physical Exam Const: No acute distress Head: Atraumatic Eyes: Normal Conjunctiva ENT: Normal External Ears, Nose and Mouth. Neck: Full range of motion. No meningismus. Resp: Clear to auscultation bilaterally Cardio: Regular rate and rhythm, no murmurs Abd: Soft, non tender, non distended. Normal bowel sounds Skin: No petechiae or rashes Back: No midline or flank tenderness Ext: No cyanosis, or edema Neur: Awake and alert Psych: Normal Mood and Affect Result Diagram: 03/28/19192803/28/191928 Results 24 hrs Laboratory Tests Test 03/28/19 19:29 03/28/19 19:46 03/28/19 20:22 03/28/19 22:12 White Blood Count 7.2 10^3/ul Red Blood Count 4.78 10^6/ul Hemoglobin 12.6 g/dl Hematocrit 39.2 % Mean Corpuscular 82.0 fl Volume Mean Corpuscular 26.4 pg Hemoglobin Mean Corpuscular 32.1 g/dl Hemoglobin Concent Red Cell 13.3 % Distribution Width Platelet Count 286 10^3/UL Mean Platelet 11.2 fl Volume Immature 0.300 % Granulocytes % Neutrophils % 53.9 % Lymphocytes % 37.1 % Monocytes % 6.4 % Eosinophils % 1.9 % Basophils % 0.4 % Nucleated Red 0.0 /100WBC Blood Cells % Immature 0.020 10^3/ul Granulocytes # Neutrophils # 3.9 10^3/ul Lymphocytes # 2.7 10^3/ul Monocytes # 0.5 10^3/ul Eosinophils # 0.1 10^3/ul Basophils # 0.0 10^3/ul Nucleated Red 0.0 10^3/ul Blood Cells # Urine Color STRAW Urine Clarity CLEAR Urine pH 5.0 Urine Specific 1.035 [place] Urine Ketones NEGATIVE mg/dL Urine Nitrite NEGATIVE mg/dL Urine Bilirubin NEGATIVE mg/dL Urine Urobilinogen NEGATIVE mg/dL Urine Leukocyte NEGATIVE Linda/ul Esterase Urine Hemoglobin NEGATIVE mg/dL Urine Glucose 3+ mg/dL Urine Total NEGATIVE mg/dl Protein Sodium Level 133 mmol/L Potassium Level 4.1 mmol/L Chloride Level 94 mmol/L Carbon Dioxide 29 mmol/L Level Anion Gap 10 Blood Urea 14 mg/dl Nitrogen Creatinine 0.79 mg/dl Est Glomerular > 60 mL/min Filtrat Rate mL/min Glucose Level 496 mg/dl Lactic Acid Level 2.4 mmol/L Calcium Level 9.7 mg/dl Bedside Glucose 412 mg/dL 415 mg/dL 332 mg/dL Current Medications Medications Dose Sig/Rylan Start Time Status Last (Trade) Ordered Route PRN Stop Time Admin Dose Reason Admin Sodium 2,000 ml @ Q1H STAT 03/28/19 DC 03/28/19 Chloride 2,000 mls/hr IV 19:20 19:43 03/28/19 20:19 Insulin 10 unit ONCE ONCE 03/28/19 DC 03/28/19 Human SC 20:30 20:26 Lispro 03/28/19 20:31 (Humalog) Sodium 1,000 ml @ Q0M ONCE 03/28/19 DC Chloride 0 mls/hr IV 22:13 03/28/19 22:14 Procedures/MDM Glucose 496. There is minimal anemia. Patient shows decreased sodium and chloride. Patient has a normal bicarb. Patient has concentrated urine with glucose but without ketones. Patient was given 2 L normal saline IV with an add itional 1 L normal saline ordered after observation treatment. He was given 10 units Humalog subcutaneously. Serial glucose was 3 2:32 liters. Patient initially had a mildly elevated lactate. Serial lactate pending after IV fluids will be signed out to mid-level provider and supervising ER physician. Patient is well-appearing and has no signs or symptoms suggest sepsis, DKA, abdominal pain, chest pain, additional concerning signs or symptoms. The patient was stable with no new complaints during the ER course. Clinically, there is no current evidence to suggest meningitis, sepsis, acute abdomen, pneumonia, stroke, acute coronary syndrome, pulmonary embolism, aortic dissection or any other emergent condition appearing to require further evaluation or hospitalization. Patient counseled regarding my diagnostic impression and care plan. Prior to discharge all questions answered. Pt agrees with treatment plan and understands strict return precautions. Pt is instructed to follow up with primary care provider within 24-48 hours. Precautionary instructions provided including instructions to return to the ER if not improving or for any worsening or changing symptoms or concerns. Disclaimer: Inadvertent spelling and grammatical errors are likely due to EHR/dictation software use and do not reflect on the overall quality of patient care. Also, please note that the electronic time recorded on this note does not necessarily reflect the actual time of the patient encounter. Departure Diagnosis: Primary Impression: Hyperglycemia Condition: Stable KASANDRA WATSON MD Mar 28, 2019 22:24
[2019-03-29 00:06] VITALS: BP 138/84; PULSE 71; RESP 17
== END 2019-03-29 00:06 | disposition home or self-care (01) ==
LOC: FTE 18:39
DX: E11.65 Type 2 diabetes mellitus with hyperglycemia (principal); I10 Essential (primary) hypertension; Z79.84 Long term (current) use of oral hypoglycemic drugs
CPT/HCPCS: 36415; 80048; 81003; 82962; 83605; 85025; 96360; 96361; 96372; 99284; J1815; J7030